=== PATIENT | male | born 1955 | race Caucasian/White ===

== ENCOUNTER 2023-01-12 10:57 | Day surgery (SDC) | payer BC, MEDICARE ==
[2023-01-08 14:42] LABS: BASOPHILS # (AUTO) 0.1 X10'3 (0-0.2); BASOPHILS % (AUTO) 1.3 % (0-1); EOSINOPHILS # (AUTO) 0.2 X10'3 (0-0.9); EOSINOPHILS % (AUTO) 3.3 % (0-6); HEMATOCRIT 45.1 % (42.0-52.0); HEMOGLOBIN 15.3 g/dl (14.0-17.9); LYMPHOCYTES # (AUTO) 1.8 X10'3 (1.1-4.8); MEAN CORPUSCULAR HEMOGLOBIN 31.2 PG (27.0-31.0); MEAN CORPUSCULAR HGB CONC 33.8 g/dL (33.0-36.5); MEAN CORPUSCULAR VOLUME 92.2 FL (78-98); MEAN PLATELET VOLUME 9.9 FL (7.4-10.4); MONOCYTES # (AUTO) 0.5 X10'3 (0-0.9); MONOCYTES % (AUTO) 11.4 % (2-12); PLATELET COUNT 159 X10'3 (140-440); RED BLOOD COUNT 4.89 X10'6 (4.70-6.10); RED CELL DISTRIBUTION WIDTH 14.5 % (11.5-14.5); WHITE BLOOD COUNT 4.6 X10'3 (4.5-11.0)
[2023-01-08 14:49] LABS: ALBUMIN 3.6 G/DL (3.4-5.0); ANION GAP 8 (8-16); BLOOD UREA NITROGEN 25 MG/DL (7-18); BUN/CREATININE RATIO 28.7 (10.0-20.0); CALCIUM 8.9 MG/DL (8.5-10.1); CHLORIDE 106 MMOL/L (99-107); CREATININE 0.87 MG/DL (0.60-1.10); GLUCOSE 105 MG/DL (70-104); POTASSIUM 4.4 MMOL/L (3.5-5.1); SODIUM 139 MMOL/L (135-145); TOTAL CARBON DIOXIDE 25.2 MMOL/L (24-32); eGFR 87 ML/MIN
[2023-01-08 14:52] LABS: APTT 29 SECONDS (22-32)
[2023-01-12] VITALS (14 sets, daily range): BP systolic 98–135; BP diastolic 62–96
[~2023-01-12] VITALS: Ht 182.9 cm; Wt 103.6 kg
[2023-01-12] MEDS ORDERED: APIX5TAB3 PO (11:16)
[2023-01-12] MEDS ORDERED: MONT-40 PO (11:16)
[2023-01-12] MEDS ORDERED: SOTA80TA PO (11:16)
[2023-01-12] MEDS ORDERED: ROSU10TA28 PO (11:16)
[2023-01-12] MEDS ORDERED: fentaNYL/PF 50MCG/1 ML 2ML syringe IV ONE (11:25)
[2023-01-12] MEDS ORDERED: MIDAZolam 1mg/ml 10ml vial IV ONE (11:25)
[2023-01-12] MEDS ORDERED: normal saline 1000ml 1,000 ML IV SCH (11:25)
== END 2023-01-12 14:45 | disposition home or self-care (01) ==
LOC: SSTAY O 10:57
PROVIDERS: ATTEND Student in an Organized Health Care Education/Training Program
DX: I48.91 Unspecified atrial fibrillation (principal); I95.1 Orthostatic hypotension; I34.89 Other nonrheumatic mitral valve disorders; E11.9 Type 2 diabetes mellitus without complications; Z87.891 Personal history of nicotine dependence; Z79.01 Long term (current) use of anticoagulants; Z79.899 Other long term (current) drug therapy
CPT/HCPCS: 36415; 80048; 85025; 85610; 85730; 92960; J2250; J3010; J7030; A4620

== ENCOUNTER 2023-07-13 11:16 | Day surgery (SDC) | payer BC, MEDICARE ==
[2023-07-09 14:41] LABS: BASOPHILS # (AUTO) 0.1 X10'3 (0-0.2); BASOPHILS % (AUTO) 1.2 % (0-1); EOSINOPHILS # (AUTO) 0.1 X10'3 (0-0.9); EOSINOPHILS % (AUTO) 2.3 % (0-6); HEMATOCRIT 44.9 % (42.0-52.0); HEMOGLOBIN 14.9 g/dl (14.0-17.9); LYMPHOCYTES # (AUTO) 1.8 X10'3 (1.1-4.8); LYMPHOCYTES % (AUTO) 33.9 % (21-51); MEAN CORPUSCULAR HEMOGLOBIN 30.9 PG (27.0-31.0); MEAN CORPUSCULAR HGB CONC 33.1 g/dL (33.0-36.5); MEAN CORPUSCULAR VOLUME 93.3 FL (78-98); MEAN PLATELET VOLUME 9.3 FL (7.4-10.4); MONOCYTES # (AUTO) 0.6 X10'3 (0-0.9); MONOCYTES % (AUTO) 11.1 % (2-12); NEUTROPHILS # (AUTO) 2.8 X10'3 (1.8-7.7); NEUTROPHILS % (AUTO) 51.5 % (42-75); PLATELET COUNT 146 X10'3 (140-440); RED BLOOD COUNT 4.81 X10'6 (4.70-6.10); RED CELL DISTRIBUTION WIDTH 14.7 % (11.5-14.5); WHITE BLOOD COUNT 5.5 X10'3 (4.5-11.0)
[2023-07-09 14:52] LABS: APTT 27 SECONDS (22-32); PROTHROMBIN TIME 10.8 SECONDS (9.0-12.0)
[2023-07-09 15:00] LABS: ALBUMIN 3.6 G/DL (3.4-5.0); ANION GAP 7 (8-16); BLOOD UREA NITROGEN 18 MG/DL (7-18); BUN/CREATININE RATIO 15.9 (10.0-20.0); CALCIUM 9.3 MG/DL (8.5-10.1); CHLORIDE 106 MMOL/L (99-107); CREATININE 1.13 MG/DL (0.60-1.10); GLUCOSE 101 MG/DL (70-104); POTASSIUM 4.2 MMOL/L (3.5-5.1); SODIUM 139 MMOL/L (135-145); eGFR 64 ML/MIN
[2023-07-13] VITALS (7 sets, daily range): BP systolic 92–143; BP diastolic 56–90; PULSE 50–82; RESP 12–18; TEMP 98.6; O2SAT 94–96
[~2023-07-13] VITALS: Ht 152.4 cm; Wt 101.8 kg
[~2023-07-13 11:16] MED LIST: APIX5TAB3 PO; MONT-40 PO; ROSU10TA28 PO; SOTA80TA PO
[2023-07-13] MEDS ORDERED: fentaNYL/PF 50MCG/1 ML 2ML syringe IV ONE (11:35)
[2023-07-13] MEDS ORDERED: normal saline 1000ml 1,000 ML IV SCH (11:35)
[2023-07-13] MEDS ORDERED: MIDAZolam 1mg/ml 10ml vial IV ONE (11:35)
[2023-07-13] MEDS ORDERED: AMI200T PO (11:51)
[2023-07-13] MEDS ORDERED: midazolam 1 mg/ML 2ml injection ONE ×2 (13:13→13:18)
[2023-07-13] MEDS ORDERED: proCHLORperazine 10 MG/2 ml inj ONE (13:13)
[2023-07-13] MEDS ORDERED: fentaNYL/PF 50MCG/1 ML 2ML syringe ONE (13:14)
== END 2023-07-13 15:55 | disposition home or self-care (01) ==
LOC: SSTAY O 11:16
PROVIDERS: ATTEND Student in an Organized Health Care Education/Training Program
DX: I48.91 Unspecified atrial fibrillation (principal); R94.31 Abnormal electrocardiogram [ECG] [EKG]; I10 Essential (primary) hypertension; E11.9 Type 2 diabetes mellitus without complications; Z79.899 Other long term (current) drug therapy
CPT/HCPCS: 36415; 80048; 85025; 85610; 85730; 92960; 93005; 99152; J0780; J2250; J3010; J7030; A4620

== ENCOUNTER 2025-08-21 10:33 | Day surgery (SDC) | payer MEDICARE, OTHER, MEDICAID ==
[~2025-08-21] VITALS: Ht 182.9 cm; Wt 113.0 kg
[~2025-08-21 10:33] MED LIST changes: +AMIO200T76 PO; +METO-384 PO; -ROSU10TA28 PO; +ROSU20TA98 PO; -SOTA80TA PO
[2025-08-21] MEDS ORDERED: MIDAZolam 1mg/ml 10ml vial IV ONE (11:10)
[2025-08-21] MEDS ORDERED: fentaNYL/PF 50MCG/1 ML 2ML syringe IV ONE (11:10)
[2025-08-21] MEDS ORDERED: normal saline 1000ml 1,000 ML IV SCH (11:10)
[2025-08-21 11:26] LABS: MEAN PLATELET VOLUME 9.5 FL (7.4-10.4); RED CELL DISTRIBUTION WIDTH 14.4 % (11.5-14.5)
[2025-08-21 11:30] VITALS: BP 95/64; PULSE 55; RESP 10; RESP 12; TEMP 98.2; O2SAT 92; O2SAT 96
[2025-08-21 11:38] LABS: CREATININE 0.99 MG/DL (0.60-1.10); TOTAL CARBON DIOXIDE 26.6 MMOL/L (24-32); eCRCL 75 ML/MIN; eGFR 75 ML/MIN
[2025-08-21 11:41] LABS: APTT 27 SECONDS (22-32); INR 1.1 INR
[2025-08-21] MEDS ORDERED: midazolam 1 mg/ML 2ml injection ONE (12:30)
[2025-08-21] MEDS ORDERED: fentaNYL/PF 50MCG/1 ML 2ML syringe ONE (12:30)
[2025-08-21 13:06] VITALS: BP 95/64; PULSE 55; RESP 10; O2SAT 92
[2025-08-21 13:15] VITALS: BP 102/71; PULSE 53; RESP 12; O2SAT 92
--- NOTE | 2025-08-21 13:23 | ELECTROCARDIOGRAPH REPORT ---
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 JANELLE Chappell Measurements Intervals Waterflow Rate: 50 P: 53 MO: 200 QRS: 67 QRSD: 98 T: 43 QT: 525 QTc: 479 Interpretive Statements Sinus rhythm Atrial premature complexes in couplets Borderline prolonged QT interval Electronically Signed On 08-21-2025 17:33:[address] JANELLE Chappell Please click the below link to view image of tracing.
[2025-08-21 13:30] VITALS: BP 95/72; PULSE 50; RESP 10; O2SAT 94
[2025-08-21 13:40] VITALS: BP 106/71; PULSE 52; RESP 12; O2SAT 94
== END 2025-08-21 13:45 | disposition home or self-care (01) ==
LOC: SSTAY O 10:33
PROVIDERS: ATTEND Student in an Organized Health Care Education/Training Program
DX: I48.91 Unspecified atrial fibrillation (principal); I49.1 Atrial premature depolarization; E11.9 Type 2 diabetes mellitus without complications; E78.00 Pure hypercholesterolemia, unspecified; G47.33 Obstructive sleep apnea (adult) (pediatric); Z79.01 Long term (current) use of anticoagulants; Z79.899 Other long term (current) drug therapy; Z98.890 Other specified postprocedural states
CPT/HCPCS: 36415; 80048; 85025; 85610; 85730; 92960; 93005; J2250; J3010; J7030; Z7610